=== PATIENT | female | born 1975 | race Caucasian/White ===

== ENCOUNTER 2018-08-25 00:51 | Emergency (ER) | payer BC ==
[2018-08-25] MEDS ORDERED: Rabies Immune Globulin/PF 1ML* 1 ML/300 UNITS VIAL IM ONE (01:52)
[2018-08-25] MEDS ORDERED: Rabies VIRUS VACCINE (RabAvert)* 2.5 UNITS VIAL IM ONE (01:53)
--- NOTE | 2018-08-25 01:56 | ED ---
Bite Injury/Animal - HPI Summary HPI Summary: This is a healthy 42-year-old female who presents after a bat exposure. She was in bed sleeping when her came in and noticed there was a bat in the room. Immediately left the room, but she noticed a very small puncture wound in her left elbow. She has no other complaints. She has not been previously vaccinated for rabies. - History of Current Complaint Chief Complaint: EDAnimalBite Stated Complaint: "BAT BITE" PER PT Time Seen by Provider: 08/25/18 01:53 Pain Intensity: 0 - Allergies/Home Medications Allergies/Adverse Reactions: Allergies Allergy/AdvReac Type Severity Reaction Status Date / Time No Known Allergies Allergy Verified 08/25/18 01:56 Home Medications: Home Medications Levothyroxine Sodium 50 mcg PO DAILY 08/25/18 [History Confirmed 08/25/18] PMH/Surg Hx/FS Hx/Imm Hx Sensory History: Reports: Hx Contacts or Glasses - will not wear contacts day of surgery Opthamlomology History: Reports: Hx Contacts or Glasses - will not wear contacts day of surgery - Surgical History Surgery Procedure, Year, and Place: 2004 & 2006 c-sections cm Hx Anesthesia Reactions: Yes - 2004 COULDN'T HOLD HEAD UP 24 HRS, 2006 N/V, VERY ANXIOUS Infectious Disease History: No Infectious Disease History: Denies: Traveled Outside the [place] in Last 30 Days - Social History Substance Use Type: Reports: None Review of Systems Constitutional: Negative Eyes: Negative ENT: Negative Cardiovascular: Negative All Other Systems Reviewed And Are Negative: No Physical Exam - Summary Physical Exam Summary: General: This is a well-developed, well- nourished middle-aged woman sitting on the stretcher in no apparent distress. The patient does not appear ill or toxic. Neck: No obvious swellings. Lungs: There are no signs of respiratory distress. Coronary: Peripheral perfusion is good. Abdomen: The abdomen appears normal and is nondistended. Genitourinary: Deferred Back: Good range of motion is observed. Extremities: Good range of motion was observed in all 4 extremities. There is no sign of any trauma to the extremities. There is a very tiny puncture wound about the left elbow. Neurologic: The patient is awake and alert, speech is fluent and conversation is appropriate. Psychiatric: The patients affect is felt to be normal and appropriate. There is no sign of any hallucinations or delusions, or any other signs of psychosis. Vital Signs On Initial Exam: Initial Vitals Temp Pulse Resp BP Pulse Ox 36.5 C 70 15 135/76 98 08/25/18 00:52 08/25/18 00:52 08/25/18 00:52 08/25/18 00:52 08/25/18 00:52 Diagnostics - Vital Signs Vital Signs Temp Pulse Resp BP Pulse Ox 08/25/18 00:52 36.5 C 70 15 135/76 98 - Laboratory Lab Statement: Any lab studies that have been ordered have been reviewed, and results considered in the medical decision making process. Bite Injury Course/Dx - Course Course Of Treatment: Given the exposure of a sleeping individual in a room with a bat and a possible puncture wound related to that, I have ordered rabies immunoglobulin and the first of the rabies vaccine series. I went over all the risks and benefits with the patient and she is agreeable to this. - Diagnoses Provider Diagnosis: Bat bite wound Discharge - Sign-Out/Discharge Documenting (check all that apply): Patient Departure Patient Received Moderate/Deep Sedation with Procedure: No - Discharge Plan Condition: Good Disposition: HOME Patient Education Materials: Rabies (ED), Rabies Vaccine (ED) Referrals: No Primary Care Phys,NOPCP [Primary Care Provider] - Additional Instructions: You will need to get the subsequent 3 doses of rabies vaccine over the next 2 weeks. You can do this through your regular doctor or contact your local health department. - Billing Disposition and Condition Condition: GOOD Disposition: Home
[2018-08-25 03:32] VITALS: BP 128/76
== END 2018-08-25 03:31 | disposition home or self-care (01) ==
LOC: ED 00:51
DX: S51.032A Puncture wound without foreign body of left elbow, initial encounter (principal); Z20.3 Contact with and (suspected) exposure to rabies; W61.91XA Bitten by other birds, initial encounter; Y93.84 Activity, sleeping; Y92.003 Bedroom of unspecified non-institutional (private) residence as the place of occurrence of the external cause; Z23 Encounter for immunization
CPT/HCPCS: 90375; 90471; 90675; 96372; 99282